=== PATIENT | male | born 1950 | race African-American/Black ===

== ENCOUNTER 2017-06-24 12:12 | Emergency (ER) | payer MEDICAID, SELFPAY ==
[~2017-06-24] VITALS: Ht 180.3 cm; Wt 100.0 kg
[2017-06-24 14:01] LABS: HEMATOCRIT 41.1 % (39.2-51.8); HEMOGLOBIN 13.5 g/dL (13.7-18.0); WHITE BLOOD COUNT 3.3 x10^3/uL (3.4-10)
[2017-06-24 14:04] LABS: ASPARTATE AMINO TRANSFERASE 17 U/L (15-37); BLOOD UREA NITROGEN 12 mg/dL (7-18)
[2017-06-24 15:33] LABS: PATH.CAST-FLAG NOT PRESENT; SPERM-FLAG NOT PRESENT; SRC-FLAG NOT PRESENT; XTAL-FLAG NOT PRESENT; YLC-FLAG NOT PRESENT
[2017-06-24] MEDS ORDERED: KETOROLAC 30 MG/1 ML ONE (16:29)
[2017-06-24] MEDS ORDERED: HYDROcodone/APAP 5/325 TABLET ONE (16:29)
[2017-06-24] MEDS ORDERED: METHOCARBAMOL 750 MG TABLET ONE (16:29)
[2017-06-24] MEDS ORDERED: HYDROcodone/APAP 5/325 TABLET PO ONE (16:30)
[2017-06-24] MEDS ORDERED: METHOCARBAMOL 750 MG TABLET PO ONE (17:00)
[2017-06-24] MEDS ORDERED: KETOROLAC 30 MG/1 ML IM ONE (17:00)
[2017-06-24 17:33] VITALS: BP 148/100
== END 2017-06-24 17:48 | disposition home or self-care (01) ==
LOC: ED 17:43
DX: S39.012A Strain of muscle, fascia and tendon of lower back, initial encounter (principal); R60.9 Edema, unspecified; N18.9 Chronic kidney disease, unspecified; X58.XXXA Exposure to other specified factors, initial encounter; Y93.89 Activity, other specified; Y92.89 Other specified places as the place of occurrence of the external cause; Y99.8 Other external cause status
CPT/HCPCS: 36415; 71020; 72110; 80053; 81001; 83880; 85025; 93005; 96372; 99285; J1885

== ENCOUNTER 2019-04-10 17:44 | Inpatient (IN) | payer MEDICARE, MEDICAID ==
[~2019-04-10] VITALS: Ht 180.3 cm; Wt 92.8 kg
--- NOTE | 2019-04-10 18:21 | NUR ---
PT TO ROOM FROM LOBBY
--- NOTE | 2019-04-10 18:21 | NUR ---
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
[2019-04-10 18:24] LABS: INTERNATIONAL NORMALIZED RATIO 0.97 (0.93-1.1); PROTHROMBIN TIME 10.2 Seconds (9.6-11.5)
[2019-04-10 18:25] LABS: ALANINE AMINOTRANSFERASE 28 U/L (12-78); ALBUMIN 3.5 g/dL (3.4-5.0); ANION GAP 9 mmol/L (5-15); CHLORIDE 110 mmol/L (98-107); CREATININE 1.27 mg/dL (0.7-1.3)
[2019-04-10 18:29] LABS: ALKALINE PHOSPHATASE 77 U/L (45-117); BILIRUBIN,TOTAL 0.8 mg/dL (0.2-1.0); TOTAL PROTEIN 7.5 g/dL (6.4-8.2)
[2019-04-10 18:30] LABS: MEAN CORPUSCULAR HEMOGLOBIN 28.1 pg (27.5-34.5); MEAN CORPUSCULAR HGB CONC 32.7 g/dL (33.2-36.2); MEAN PLATELET VOLUME 7.4 fL (7.4-10.4); PLATELET COUNT 198 x10^3/uL (130-400); RED BLOOD COUNT 5.13 x10^6/uL (4.38-5.82); RED CELL DISTRIBUTION WIDTH 14.2 % (9.4-14.8)
--- NOTE | 2019-04-10 18:46 | NUR ---
PT RETURNED FROM , AT BEDSIDE
[2019-04-10 18:58] LABS: BASOPHILS # (AUTO) 0.03 x10^3/uL (0-0.1); BASOPHILS % (AUTO) 1 % (0-1); EOSINOPHILS # (AUTO) 0.07 x10^3/uL (0-0.4); EOSINOPHILS % (AUTO) 1 % (1-7); LYMPHOCYTES # (AUTO) 1.17 x10^3/uL (1-3.4); LYMPHOCYTES % (AUTO) 22 % (22-44); MD NO; MONOCYTES # (AUTO) 0.57 x10^3/uL (0.2-0.8); MONOCYTES % (AUTO) 11 % (2-9); NEUTROPHILS # (AUTO) 3.54 x10^3/uL (1.8-6.8); NEUTROPHILS % (AUTO) 66 % (42-75)
[2019-04-10] MEDS ORDERED: HEPARIN 5,000 UNITS/ML, 1ML IV ONE (19:00)
[2019-04-10] MEDS ORDERED: HYDR-3240 PO (19:14)
--- NOTE | 2019-04-10 19:16 | NUR ---
REPORT TO SALLY
--- NOTE | 2019-04-10 19:20 | NUR ---
PT TO CT
[2019-04-10] MEDS ORDERED: HYDROcodone/APAP 5/325 TABLET PO PRN (19:30)
[2019-04-10] MEDS ORDERED: POLYETHYLENE GLYCOL 17 GM PACKET PO PRN (19:30)
[2019-04-10] MEDS ORDERED: BISACODYL 10 MG SUPP PR PRN (19:30)
[2019-04-10] MEDS: NICOTINE 7 MG/24 HR PATCH.TD24 TD SCH (19:30)
[2019-04-10] MEDS ORDERED: ONDANSETRON ODT 4 MG PO PRN (19:30)
[2019-04-10] MEDS ORDERED: ACETAMINOPHEN 325 MG TABLET PO PRN (19:30)
[2019-04-10 19:37] LABS: TROPONIN I < 0.015 ng/mL (0.000-0.045)
[2019-04-10] MEDS: HEPARIN 25,000 UNITS/500ML PMX 500 ML IV PRN (20:26)
[2019-04-10] MEDS ORDERED: WARFARIN 5 MG TABLET PO-COUM ONE (20:30)
[2019-04-10 20:32] VITALS: BP 136/88
[2019-04-10] MEDS: SODIUM CHLORIDE FLUSH 10ML SYR IVF SCH (21:10)
[2019-04-11] MEDS ORDERED: OMNIPAQUE 350 MG/ML, 150 ML BOTTLE ONE (00:23)
[2019-04-11 01:57] VITALS: BP 124/84
[2019-04-11 04:05] LABS: PROTHROMBIN TIME 10.5 Seconds (9.6-11.5)
[2019-04-11 04:07] LABS: ANION GAP 8 mmol/L (5-15); CALCIUM 8.7 mg/dL (8.5-10.1); CHLORIDE 111 mmol/L (98-107); MEAN CORPUSCULAR HGB CONC 32.3 g/dL (33.2-36.2); MEAN CORPUSCULAR VOLUME 86.8 fL (81-97); MEAN PLATELET VOLUME 7.2 fL (7.4-10.4); PLATELET COUNT 194 x10^3/uL (130-400); RED BLOOD COUNT 4.75 x10^6/uL (4.38-5.82); RED CELL DISTRIBUTION WIDTH 14.2 % (9.4-14.8)
[2019-04-11 04:12] LABS: ALANINE AMINOTRANSFERASE 23 U/L (12-78); ALKALINE PHOSPHATASE 71 U/L (45-117); TOTAL PROTEIN 6.5 g/dL (6.4-8.2); TROPONIN I < 0.015 ng/mL (0.000-0.045)
[2019-04-11] MEDS: HEPARIN 5,000 UNITS/ML, 1ML IV PRN ×3 (04:22→18:33)
[2019-04-11 04:30] LABS: BASOPHILS # (AUTO) 0.03 x10^3/uL (0-0.1); BASOPHILS % (AUTO) 1 % (0-1); EOSINOPHILS # (AUTO) 0.09 x10^3/uL (0-0.4); EOSINOPHILS % (AUTO) 2 % (1-7); LYMPHOCYTES % (AUTO) 19 % (22-44); MD SCAN; MONOCYTES # (AUTO) 0.56 x10^3/uL (0.2-0.8); MONOCYTES % (AUTO) 12 % (2-9); NEUTROPHILS # (AUTO) 3.14 x10^3/uL (1.8-6.8); NEUTROPHILS % (AUTO) 67 % (42-75)
[2019-04-11 06:59] VITALS: BP 125/88
[2019-04-11] MEDS: SENNA/DOCUSATE TABLET PO SCH (09:00)
[2019-04-11] MEDS: SODIUM CHLORIDE FLUSH 10ML SYR IVF SCH ×2 (09:00→21:45)
[2019-04-11] MEDS: SODIUM CHLORIDE 0.9% 1,000 ML IV SCH ×2 (12:12→21:46)
[2019-04-11 15:06] VITALS: BP 116/79
[2019-04-11] MEDS ORDERED: WARFARIN 5 MG TABLET PO-COUM ONE (18:00)
[2019-04-11 18:49] VITALS: BP 106/73
[2019-04-11] MEDS: HEPARIN 25,000 UNITS/500ML PMX 500 ML IV PRN (19:29)
[2019-04-11] MEDS: NICOTINE 7 MG/24 HR PATCH.TD24 TD SCH (19:30)
[2019-04-12] MEDS: SODIUM CHLORIDE 0.9% 1,000 ML IV SCH ×2 (00:27→13:50)
[2019-04-12 00:45] VITALS: BP 127/66
[2019-04-12] MEDS: HEPARIN 5,000 UNITS/ML, 1ML IV PRN (01:56)
[2019-04-12 05:15] LABS: BASOPHILS # (AUTO) 0.04 x10^3/uL (0-0.1); BASOPHILS % (AUTO) 1 % (0-1); EOSINOPHILS # (AUTO) 0.12 x10^3/uL (0-0.4); EOSINOPHILS % (AUTO) 3 % (1-7); LYMPHOCYTES # (AUTO) 1.43 x10^3/uL (1-3.4); LYMPHOCYTES % (AUTO) 30 % (22-44); MD NO; MEAN CORPUSCULAR HEMOGLOBIN 27.9 pg (27.5-34.5); MEAN CORPUSCULAR HGB CONC 32.1 g/dL (33.2-36.2); MEAN CORPUSCULAR VOLUME 86.9 fL (81-97); MEAN PLATELET VOLUME 7.4 fL (7.4-10.4); MONOCYTES % (AUTO) 10 % (2-9); NEUTROPHILS # (AUTO) 2.74 x10^3/uL (1.8-6.8); NEUTROPHILS % (AUTO) 57 % (42-75); PLATELET COUNT 188 x10^3/uL (130-400); RED BLOOD COUNT 4.81 x10^6/uL (4.38-5.82); RED CELL DISTRIBUTION WIDTH 14.5 % (9.4-14.8)
[2019-04-12 05:38] LABS: ANION GAP 8 mmol/L (5-15); CHLORIDE 111 mmol/L (98-107)
[2019-04-12 05:43] LABS: INTERNATIONAL NORMALIZED RATIO 1.01 (0.93-1.1); PROTHROMBIN TIME 10.6 Seconds (9.6-11.5)
[2019-04-12 05:49] LABS: ALANINE AMINOTRANSFERASE 23 U/L (12-78); ALBUMIN 2.8 g/dL (3.4-5.0); ALKALINE PHOSPHATASE 83 U/L (45-117); BILIRUBIN,TOTAL 0.8 mg/dL (0.2-1.0); CALCIUM 8.4 mg/dL (8.5-10.1); CREATININE 1.23 mg/dL (0.7-1.3); TOTAL PROTEIN 6.4 g/dL (6.4-8.2)
[2019-04-12 07:08] VITALS: BP 126/79
[2019-04-12] MEDS: SODIUM CHLORIDE FLUSH 10ML SYR IVF SCH ×2 (09:00→20:31)
[2019-04-12] MEDS: SENNA/DOCUSATE TABLET PO SCH (09:00)
[2019-04-12] MEDS: HEPARIN 25,000 UNITS/500ML PMX 500 ML IV PRN (11:21)
[2019-04-12 13:10] VITALS: BP 116/79
[2019-04-12] MEDS ORDERED: WARFARIN 5 MG TABLET PO-COUM ONE (18:00)
[2019-04-12] MEDS: NICOTINE 7 MG/24 HR PATCH.TD24 TD SCH (19:25)
[2019-04-12 19:44] VITALS: BP 114/78
[2019-04-12] MEDS ORDERED: LORazepam 1MG TABLET PO ONE (23:00)
[2019-04-13 01:08] VITALS: BP 109/72
[2019-04-13] MEDS: HEPARIN 25,000 UNITS/500ML PMX 500 ML IV PRN (03:45)
[2019-04-13 04:51] LABS: BASOPHILS # (AUTO) 0.04 x10^3/uL (0-0.1); BASOPHILS % (AUTO) 1 % (0-1); EOSINOPHILS % (AUTO) 3 % (1-7); LYMPHOCYTES # (AUTO) 1.26 x10^3/uL (1-3.4); LYMPHOCYTES % (AUTO) 30 % (22-44); MD NO; MEAN CORPUSCULAR HEMOGLOBIN 27.9 pg (27.5-34.5); MEAN CORPUSCULAR HGB CONC 32.1 g/dL (33.2-36.2); MEAN CORPUSCULAR VOLUME 86.7 fL (81-97); MEAN PLATELET VOLUME 7.4 fL (7.4-10.4); MONOCYTES # (AUTO) 0.46 x10^3/uL (0.2-0.8); MONOCYTES % (AUTO) 11 % (2-9); NEUTROPHILS # (AUTO) 2.33 x10^3/uL (1.8-6.8); NEUTROPHILS % (AUTO) 56 % (42-75); PLATELET COUNT 185 x10^3/uL (130-400); RED BLOOD COUNT 4.58 x10^6/uL (4.38-5.82); RED CELL DISTRIBUTION WIDTH 14.3 % (9.4-14.8)
[2019-04-13 05:03] LABS: INTERNATIONAL NORMALIZED RATIO 1.02 (0.93-1.1); PROTHROMBIN TIME 10.7 Seconds (9.6-11.5)
[2019-04-13 05:04] LABS: CHLORIDE 115 mmol/L (98-107)
[2019-04-13 05:09] LABS: ALANINE AMINOTRANSFERASE 21 U/L (12-78); ALBUMIN 2.6 g/dL (3.4-5.0); ALKALINE PHOSPHATASE 67 U/L (45-117); ANION GAP 6 mmol/L (5-15); BILIRUBIN,TOTAL 0.5 mg/dL (0.2-1.0); CALCIUM 7.8 mg/dL (8.5-10.1); TOTAL PROTEIN 6.3 g/dL (6.4-8.2)
[2019-04-13] MEDS ORDERED: APIX5TAB PO (07:25)
[2019-04-13 07:30] VITALS: BP 139/96
[2019-04-13] MEDS ORDERED: POTA10CA PO (07:39)
[2019-04-13] MEDS ORDERED: LISI5TAB7 PO (07:39)
[2019-04-13] MEDS ORDERED: FURO-93 PO (07:39)
[2019-04-13] MEDS ORDERED: METO25TA2 PO (07:39)
[2019-04-13] MEDS ORDERED: METOPROLOL SUCCINATE 25 MG TAB.ER.24H PO SCH (08:30)
[2019-04-13] MEDS: APIXABAN 5 MG TABLET PO SCH ×2 (08:33→09:00)
[2019-04-13] MEDS: SODIUM CHLORIDE FLUSH 10ML SYR IVF SCH (08:34)
[2019-04-13] MEDS ORDERED: FUROSEMIDE 20 MG/2 ML IV SCH (09:00)
[2019-04-13] MEDS: SENNA/DOCUSATE TABLET PO SCH (09:00)
[2019-04-13] MEDS ORDERED: LISINOPRIL 5 MG TABLET PO SCH (09:00)
== END 2019-04-13 11:13 | disposition home health service (06) | DRG 175 ==
LOC: ED 18:54 → EDIP 18:56 → 4WST 20:00 → DCLOUNGE 04-13 10:48
PROVIDERS: ADMIT Family Medicine; ATTEND Family Medicine
DX: I26.99 Other pulmonary embolism without acute cor pulmonale (principal); I50.21 Acute systolic (congestive) heart failure; I82.402 Acute embolism and thrombosis of unspecified deep veins of left lower extremity; D68.59 Other primary thrombophilia; F17.210 Nicotine dependence, cigarettes, uncomplicated; D64.9 Anemia, unspecified; E04.1 Nontoxic single thyroid nodule; I27.20 Pulmonary hypertension, unspecified; N18.9 Chronic kidney disease, unspecified; Z79.899 Other long term (current) drug therapy; Z82.49 Family history of ischemic heart disease and other diseases of the circulatory system; Z83.3 Family history of diabetes mellitus
CPT/HCPCS: 36415; 71046; 71275; 80053; 83735; 83880; 84100; 84484; 85025; 85520; 85610; 85730; 93005; 93306; 99285; G0378; J1644; Q9967; J1940; J7030

== ENCOUNTER 2020-03-03 22:56 | Emergency (ER) | payer MEDICARE, MEDICAID ==
[~2020-03-03] VITALS: Ht 180.3 cm; Wt 90.9 kg
[~2020-03-03 22:56] MED LIST: APIX5TAB PO; FURO-93 PO; HYDR-3240 PO; LISI5TAB7 PO; METO25TA2 PO; POTA10CA PO
[2020-03-03 23:24] LABS: BASOPHILS # (AUTO) 0.02 x10^3/uL (0-0.1); BASOPHILS % (AUTO) 0 % (0-1); EOSINOPHILS # (AUTO) 0.11 x10^3/uL (0-0.4); EOSINOPHILS % (AUTO) 2 % (1-7); LYMPHOCYTES # (AUTO) 0.81 x10^3/uL (1-3.4); LYMPHOCYTES % (AUTO) 16 % (22-44); MD NO; MEAN CORPUSCULAR HEMOGLOBIN 28.7 pg (27.5-34.5); MEAN CORPUSCULAR VOLUME 87.2 fL (81-97); MEAN PLATELET VOLUME 7.4 fL (7.4-10.4); MONOCYTES # (AUTO) 0.44 x10^3/uL (0.2-0.8); MONOCYTES % (AUTO) 9 % (2-9); NEUTROPHILS # (AUTO) 3.67 x10^3/uL (1.8-6.8); NEUTROPHILS % (AUTO) 73 % (42-75); PLATELET COUNT 226 x10^3/uL (130-400); RED BLOOD COUNT 4.06 x10^6/uL (4.38-5.82); RED CELL DISTRIBUTION WIDTH 13.2 % (9.4-14.8)
[2020-03-03 23:37] LABS: ALANINE AMINOTRANSFERASE 36 U/L (12-78); ALBUMIN 3.3 g/dL (3.4-5.0); ANION GAP 4 mmol/L (5-15); CALCIUM 9.1 mg/dL (8.5-10.1); CHLORIDE 110 mmol/L (98-107); CREATININE 2.05 mg/dL (0.7-1.3)
[2020-03-03 23:39] LABS: ALKALINE PHOSPHATASE 83 U/L (45-117); BILIRUBIN,TOTAL 0.4 mg/dL (0.2-1.0); TOTAL PROTEIN 7.3 g/dL (6.4-8.2)
--- NOTE | 2020-03-03 23:55 | NUR ---
[facility] CATH IRRIGATED UNTIL URINE CLEAR. UA COLLECTED AND SENT. [facility] SECURED AND CLEANSED. CALL LIGHT IN REACH.
[2020-03-04] LABS: CULTURE INDICATED? YES; MICROSCOPIC INDICATED
--- NOTE | 2020-03-04 00:45 | NUR ---
[facility]WAIT[facility]. PT AWARE.
[2020-03-04] MEDS ORDERED: MORPHINE SULFATE 4 MG/ML, 1ML ONE (01:28)
[2020-03-04] MEDS ORDERED: MORPHINE SULFATE 4 MG/ML, 1ML IVPush PRN (01:30)
--- NOTE | 2020-03-04 01:30 | NUR ---
PT C/O INTERMITTENT CRAMPING ABD PAIN. REQUESTING PAIN MEDS. ERP AWARE AND ORDERS RECEIVED. PT MEDICATED PER JAN. CONTINUING TO WAIT FOR RECORDS FROM [facility]--PT AWARE. NO FURTHER NEEDS EXPRESSED. CALL LIGHT IN REACH.
--- NOTE | 2020-03-04 01:39 | NUR ---
URINE FROM [facility] BLOOD TINGED AGAIN. ERP AWARE. ERP TO ORDER ANTIBIOTICS.
[2020-03-04] MEDS ORDERED: CIPROFLOXACIN 500 MG TABLET ONE (01:43)
--- NOTE | 2020-03-04 01:52 | NUR ---
PT MEDICATED PER JAN. PO FLUIDS GIVEN. CALL LIGHT IN REACH.
[2020-03-04] MEDS ORDERED: CIPROFLOXACIN 500 MG TABLET PO ONE (02:00)
[2020-03-04 02:52] VITALS: BP 150/86
== END 2020-03-04 02:55 | disposition home or self-care (01) ==
LOC: MERGE 22:56 → ED 23:33
DX: N30.01 Acute cystitis with hematuria (principal); R10.30 Lower abdominal pain, unspecified; I13.0 Hypertensive heart and chronic kidney disease with heart failure and stage 1 through stage 4 chronic kidney disease, or unspecified chronic kidney disease; N18.9 Chronic kidney disease, unspecified; I50.9 Heart failure, unspecified; F17.200 Nicotine dependence, unspecified, uncomplicated; Z86.718 Personal history of other venous thrombosis and embolism; Z79.01 Long term (current) use of anticoagulants
CPT/HCPCS: 36415; 80053; 81001; 83690; 85025; 87086; 96374; 99283; J2270

== ENCOUNTER 2020-03-20 20:21 | Observation (INO) | payer MEDICARE, MEDICAID ==
[~2020-03-20] VITALS: Ht 180.3 cm; Wt 90.5 kg
--- NOTE | 2020-03-20 20:48 | NUR ---
BIB [facility]. C/O left-sided CP and LOC. Hx DVT and PE, on Eliquis. RR = 28. Lungs diminished throughout. 2+ bilat pedal edema. Hx CHF. A&Ox4. EKG done. Placed on NIBP, pulse ox and diagnostic cardiac sonographer. Will continue to monitor.
--- NOTE | 2020-03-20 21:01 | NUR ---
Patient has catherter for urinary retention. Awaiting prostate biopsy.
[2020-03-20 21:13] LABS: ALANINE AMINOTRANSFERASE 27 U/L (12-78); ALBUMIN 3.2 g/dL (3.4-5.0); ANION GAP 9 mmol/L (5-15); CALCIUM 8.6 mg/dL (8.5-10.1); CHLORIDE 108 mmol/L (98-107); CREATININE 1.62 mg/dL (0.7-1.3)
[2020-03-20 21:17] LABS: ALKALINE PHOSPHATASE 96 U/L (45-117); BILIRUBIN,TOTAL 0.4 mg/dL (0.2-1.0); TOTAL PROTEIN 7.2 g/dL (6.4-8.2); TROPONIN I < 0.015 ng/mL (0.000-0.045)
[2020-03-20 21:18] LABS: BASOPHILS # (AUTO) 0.01 x10^3/uL (0-0.1); BASOPHILS % (AUTO) 0 % (0-1); EOSINOPHILS # (AUTO) 0.11 x10^3/uL (0-0.4); EOSINOPHILS % (AUTO) 2 % (1-7); LYMPHOCYTES # (AUTO) 0.72 x10^3/uL (1-3.4); LYMPHOCYTES % (AUTO) 12 % (22-44); MD NO; MEAN CORPUSCULAR HEMOGLOBIN 29.1 pg (27.5-34.5); MEAN CORPUSCULAR VOLUME 88.3 fL (81-97); MEAN PLATELET VOLUME 7.5 fL (7.4-10.4); MONOCYTES # (AUTO) 0.32 x10^3/uL (0.2-0.8); MONOCYTES % (AUTO) 5 % (2-9); NEUTROPHILS # (AUTO) 4.99 x10^3/uL (1.8-6.8); NEUTROPHILS % (AUTO) 81 % (42-75); PLATELET COUNT 223 x10^3/uL (130-400); RED BLOOD COUNT 4.29 x10^6/uL (4.38-5.82); RED CELL DISTRIBUTION WIDTH 13.4 % (9.4-14.8)
--- NOTE | 2020-03-20 23:15 | NUR ---
Gave report to Ozzy DREW
--- NOTE | 2020-03-20 23:15 | NUR ---
Pt resting comfortably.
--- NOTE | 2020-03-20 23:18 | NUR ---
ASSUMED CARE OF PT. VSS. CALL LIGHT PLACED WITHIN REACH.
[2020-03-20 23:19] LABS: MICROSCOPIC NOT IND
[2020-03-20 23:23] LABS: CULTURE INDICATED? NO
[2020-03-20] MEDS ORDERED: GABA300C10 PO (23:45)
--- NOTE | 2020-03-20 23:49 | NUR ---
1L NS BOLUS RUNNING. PT RESTING ON GURNEY IN NAD. CALL LIGHT PLACED AT BEDSIDE.
[2020-03-21] MEDS ORDERED: SODIUM CHLORIDE 0.9% 1,000ML IVBOLUS ONE
[2020-03-21] MEDS ORDERED: ACETAMINOPHEN 325 MG TABLET PO PRN (00:30)
[2020-03-21] MEDS ORDERED: ONDANSETRON 2MG/ML, 2ML IVPush PRN (00:30)
--- NOTE | 2020-03-21 00:36 | NUR ---
REPORT CALLED TO TIM DREW.
[2020-03-21 01:00] VITALS: BP 121/80
[2020-03-21 02:51] LABS: INTERNATIONAL NORMALIZED RATIO 0.93 (0.93-1.1); PROTHROMBIN TIME 9.8 Seconds (9.6-11.5)
[2020-03-21 03:58] VITALS: BP 118/74
[2020-03-21 06:56] LABS: TROPONIN I < 0.015 ng/mL (0.000-0.045)
[2020-03-21 07:36] LABS: HCT (SEDRATE) 34.4 % (39.2-51.8)
[2020-03-21 08:04] LABS: PSA SCREEN 39.3 ng/mL (0.00-4.00)
[2020-03-21 08:15] VITALS: BP 108/67
[2020-03-21 08:54] VITALS: BP 114/71
[2020-03-21] MEDS: LISINOPRIL 5 MG TABLET PO SCH (08:55)
[2020-03-21] MEDS: METOPROLOL SUCCINATE 25 MG TAB.ER.24H PO SCH (08:55)
[2020-03-21] MEDS ORDERED: APIXABAN 5 MG TABLET PO SCH (09:00)
[2020-03-21] MEDS: APIXABAN 5 MG TABLET PO SCH ×2 (09:44→21:47)
[2020-03-21 12:35] VITALS: BP 120/71
[2020-03-21] MEDS ORDERED: MAGNESIUM HYDROXIDE 8%, 30ML UDC PO PRN (13:30)
[2020-03-21] MEDS ORDERED: GABAPENTIN 300 MG CAPSULE ONE (17:53)
[2020-03-21] MEDS: GABAPENTIN 300 MG CAPSULE PO SCH ×2 (17:56→21:47)
[2020-03-21] MEDS: DOCUSATE 100 MG CAPSULE PO SCH (21:00)
[2020-03-21 21:46] VITALS: BP 115/74
[2020-03-22 01:35] VITALS: BP 103/62
[2020-03-22 04:45] LABS: BASOPHILS # (AUTO) 0.04 x10^3/uL (0-0.1); BASOPHILS % (AUTO) 1 % (0-1); CALCIUM 8.3 mg/dL (8.5-10.1); CHLORIDE 110 mmol/L (98-107); EOSINOPHILS % (AUTO) 2 % (1-7); LYMPHOCYTES # (AUTO) 1.39 x10^3/uL (1-3.4); LYMPHOCYTES % (AUTO) 33 % (22-44); MD NO; MEAN CORPUSCULAR HEMOGLOBIN 28.8 pg (27.5-34.5); MEAN CORPUSCULAR HGB CONC 32.7 g/dL (33.2-36.2); MEAN PLATELET VOLUME 7.6 fL (7.4-10.4); MONOCYTES # (AUTO) 0.35 x10^3/uL (0.2-0.8); MONOCYTES % (AUTO) 8 % (2-9); NEUTROPHILS # (AUTO) 2.36 x10^3/uL (1.8-6.8); NEUTROPHILS % (AUTO) 56 % (42-75); PLATELET COUNT 206 x10^3/uL (130-400); RED BLOOD COUNT 3.63 x10^6/uL (4.38-5.82); RED CELL DISTRIBUTION WIDTH 13.6 % (9.4-14.8)
[2020-03-22 04:51] LABS: ALANINE AMINOTRANSFERASE 22 U/L (12-78); ALBUMIN 2.9 g/dL (3.4-5.0); ALKALINE PHOSPHATASE 61 U/L (45-117); ANION GAP 7 mmol/L (5-15); BILIRUBIN,TOTAL 0.9 mg/dL (0.2-1.0); CREATININE 1.29 mg/dL (0.7-1.3); TOTAL PROTEIN 6.3 g/dL (6.4-8.2)
[2020-03-22 07:20] VITALS: BP 114/69
[2020-03-22] MEDS ORDERED: BISACODYL 10 MG SUPP PR PRN (08:30)
[2020-03-22] MEDS ORDERED: TAMS-11 PO (09:37)
[2020-03-22] MEDS ORDERED: CYCL5TAB PO (09:37)
[2020-03-22] MEDS ORDERED: FINA5TAB4 PO (09:37)
[2020-03-22] MEDS ORDERED: MULT-658 PO (09:37)
[2020-03-22] MEDS ORDERED: APIX2.5T PO (09:41)
[2020-03-22] MEDS ORDERED: FINASTERIDE 5 MG TABLET PO SCH (10:00)
[2020-03-22] MEDS ORDERED: TAMSULOSIN 0.4 MG CAP.ER.24H PO SCH (10:00)
[2020-03-22] MEDS: APIXABAN 5 MG TABLET PO SCH (10:29)
[2020-03-22] MEDS: METOPROLOL SUCCINATE 25 MG TAB.ER.24H PO SCH (10:30)
[2020-03-22] MEDS: LISINOPRIL 5 MG TABLET PO SCH (10:30)
[2020-03-22] MEDS: DOCUSATE 100 MG CAPSULE PO SCH (10:30)
[2020-03-22] MEDS: GABAPENTIN 300 MG CAPSULE PO SCH (10:30)
[2020-03-22 14:20] VITALS: BP 104/68
== END 2020-03-22 17:20 | disposition home or self-care (01) ==
LOC: ED 03-21 00:14 → EDIP 03-21 00:25 → OBSVTOIN 03-21 00:25 → INTOOBSV 03-21 00:25 → 5SO 03-21 00:52
PROVIDERS: ADMIT Internal Medicine; ATTEND Internal Medicine
DX: R55 Syncope and collapse (principal); I13.0 Hypertensive heart and chronic kidney disease with heart failure and stage 1 through stage 4 chronic kidney disease, or unspecified chronic kidney disease; I50.22 Chronic systolic (congestive) heart failure; R59.1 Generalized enlarged lymph nodes; N40.1 Benign prostatic hyperplasia with lower urinary tract symptoms; I26.99 Other pulmonary embolism without acute cor pulmonale; K59.00 Constipation, unspecified; N18.9 Chronic kidney disease, unspecified; D64.9 Anemia, unspecified; R33.8 Other retention of urine; Z79.01 Long term (current) use of anticoagulants
CPT/HCPCS: 36415; 70450; 71045; 74176; 80053; 81003; 83735; 84439; 84443; 84480; 84484; 85025; 85610; 85651; 93005; 93306; 93880; 96360; 97110; 97163; 97530; 99285; G0103; G0378; J7030

== ENCOUNTER 2020-08-28 09:07 | Emergency (ER) | payer MEDICARE, MEDICAID ==
[~2020-08-28] VITALS: Ht 180.3 cm; Wt 86.4 kg
[~2020-08-28 09:07] MED LIST changes: +APIX2.5T PO; +CYCL5TAB PO; +FINA5TAB4 PO; +GABA300C10 PO; +MULT-658 PO; +TAMS-11 PO
[2020-08-28 09:36] VITALS: BP 143/88
[2020-08-28 09:48] LABS: MICROSCOPIC AUTO
[2020-08-28] MEDS ORDERED: TOLTERODINE 2MG TABLET PO ONE (09:55)
[2020-08-28] MEDS ORDERED: CEFTRIAXONE 1,000 MG IM ONE (10:00)
[2020-08-28] MEDS ORDERED: CEFTRIAXONE 1,000 MG ONE (10:01)
[2020-08-28] MEDS ORDERED: LIDOCAINE-MPF 1%, 2ML ONE (10:01)
[2020-08-28] MEDS ORDERED: CARBAMAZEPINE 200 MG TABLET ONE (10:01)
== END 2020-08-28 10:41 | disposition home or self-care (01) ==
LOC: ED 09:14
DX: N30.00 Acute cystitis without hematuria (principal); I13.0 Hypertensive heart and chronic kidney disease with heart failure and stage 1 through stage 4 chronic kidney disease, or unspecified chronic kidney disease; I50.9 Heart failure, unspecified; N18.9 Chronic kidney disease, unspecified; Z86.718 Personal history of other venous thrombosis and embolism
CPT/HCPCS: 51702; 81001; 87086; 96372; 99284; J0696

== ENCOUNTER 2020-09-03 07:28 | Emergency (ER) | payer MEDICARE, MEDICAID ==
[~2020-09-03] VITALS: Ht 180.3 cm; Wt 86.0 kg
--- NOTE | 2020-09-03 08:05 | NUR ---
first contact with pt. pt stated"i woke up and my catheter was out. i'm uncomfortable and little bit pressure pain around my stomach." pt denies n/v/d. hx of prostate cancer. pt's aox4. resps even and unlabored. bp/spo2 monitors in place. call light within reach. pa at bedside evaluating at this time.
--- NOTE | 2020-09-03 08:06 | NUR ---
bladder scan is done at bedside and it is about 600ml
--- NOTE | 2020-09-03 08:33 | NUR ---
gomez cath inserted at this time. pt tolerated well.
[2020-09-03 09:10] VITALS: BP 121/76
--- NOTE | 2020-09-03 09:18 | NUR ---
leg bag applied at dc.
--- NOTE | 2020-09-03 09:19 | NUR ---
Patient given discharge instructions and they have confirmed that they understand the instructions. taxi voucher given at co.
== END 2020-09-03 09:19 | disposition home or self-care (01) ==
LOC: ED 09:00
DX: N40.1 Benign prostatic hyperplasia with lower urinary tract symptoms (principal); R33.8 Other retention of urine; F17.210 Nicotine dependence, cigarettes, uncomplicated; I12.9 Hypertensive chronic kidney disease with stage 1 through stage 4 chronic kidney disease, or unspecified chronic kidney disease; N18.9 Chronic kidney disease, unspecified; Z86.718 Personal history of other venous thrombosis and embolism; Z85.46 Personal history of malignant neoplasm of prostate
CPT/HCPCS: 51702; 99284; 99406

== ENCOUNTER 2020-12-18 09:16 | Observation (INO) | payer MEDICAID, MEDICARE, OTHER ==
[~2020-12-18] VITALS: Ht 180.3 cm; Wt 89.4 kg
[~2020-12-18 09:16] MED LIST changes: +AMOX875T PO; +ASCO500T9 PO; +CHOL10003 PO; +CHOL500045 PO; +HYDR-1067 PO; -HYDR-3240 PO; +LEVO500T8 PO; +[UNRECOGNIZED DRUG - CODE] PO
--- NOTE | 2020-12-18 09:25 | NUR ---
pt ambulated to room with FWW/steady gait.
--- NOTE | 2020-12-18 09:30 | NUR ---
pt ambulated to the bathroom.
--- NOTE | 2020-12-18 09:31 | NUR ---
pt in with C/O "clogged catheter" pt also noted to have a PICC to his left upper arm. PICC appears compromised and mostly exposed, dressing soild and fraying. pt reports that he has had the PICC since September 2020. pt stated he was discharged from the hospital with it and it has not been used.
--- NOTE | 2020-12-18 09:42 | NUR ---
PA AT BEDSIDE.
--- NOTE | 2020-12-18 10:10 | NUR ---
attempted to removed catheter without sucess. bladder scan completed and shows 415mL retention. lab at bedside.
[2020-12-18 10:30] LABS: BASOPHILS % (AUTO) 1 % (0-1); EOSINOPHILS % (AUTO) 2 % (1-7); LYMPHOCYTES % (AUTO) 16 % (22-44); MEAN CORPUSCULAR HEMOGLOBIN 27.2 pg (27.5-34.5); MEAN CORPUSCULAR HGB CONC 32.4 g/dL (33.2-36.2); MEAN PLATELET VOLUME 7.4 fL (7.4-10.4); MONOCYTES % (AUTO) 7 % (2-9); NEUTROPHILS % (AUTO) 75 % (42-75); PLATELET COUNT 211 x10^3/uL (130-400); RED BLOOD COUNT 4.68 x10^6/uL (4.38-5.82); RED CELL DISTRIBUTION WIDTH 13.7 % (9.4-14.8)
--- NOTE | 2020-12-18 10:30 | NUR ---
Discussed urinary findings with PA. PA advised to irrigate cath site to assist in removal
[2020-12-18 10:32] LABS: MD NO
[2020-12-18 10:42] LABS: ALANINE AMINOTRANSFERASE 38 U/L (12-78); ALBUMIN 3.4 g/dL (3.4-5.0); ANION GAP 6 mmol/L (5-15); BILIRUBIN, DIRECT 0.2 mg/dL (0.1-0.2); CHLORIDE 111 mmol/L (98-107); CREATININE 1.14 mg/dL (0.7-1.3)
[2020-12-18 10:45] LABS: ALKALINE PHOSPHATASE 126 U/L (45-117); BILIRUBIN,INDIRECT 0.4 mg/dL (0.0-2.0); BILIRUBIN,TOTAL 0.6 mg/dL (0.2-1.0); TOTAL PROTEIN 7.1 g/dL (6.4-8.2)
[2020-12-18] MEDS ORDERED: SODIUM CHLORIDE 0.9% 1,000ML IVBOLUS ONE (11:30)
[2020-12-18] MEDS ORDERED: SODIUM CHLORIDE FLUSH 10ML SYR IVF ONE (11:30)
--- NOTE | 2020-12-18 12:14 | NUR ---
bladder irrigation attempted. unable to remove catheter. Discussed with PA and concerns regarding PICC line exposure and inquired about removal. PA to consult with MD and give further orders.
--- NOTE | 2020-12-18 12:52 | NUR ---
PICC removed with tip intact. pt tolerated procedure without complications
--- NOTE | 2020-12-18 13:38 | NUR ---
TASK RN NOTE: PT RECLINED IN BED, RESPIRATIONS EVEN AND UNLABORED. SIDE RAILS UP, CALL LIGHT IN REACH. AWAITING UROLOGY CONSULT.
[2020-12-18] MEDS ORDERED: LIDOCAINE 2%,20 ML JEL.PF.APP MM ONE (14:07)
[2020-12-18 15:02] LABS: MICROSCOPIC INDICATED
--- NOTE | 2020-12-18 15:03 | NUR ---
RECEIVED REPORT FROM BENNIE DREW, PLAN OF CARE DISCUSSED
[2020-12-18] MEDS ORDERED: CEFTRIAXONE PMX 1GM/50ML 50 ML ONE (15:29)
[2020-12-18] MEDS ORDERED: CEFTRIAXONE PMX 1GM/50ML 50 ML IVPB ONE (15:30)
--- NOTE | 2020-12-18 15:43 | NUR ---
IV INFUSING, ORDERED MEAL, PT WILL BE ADMITTED, VERBALIZED UNDERSTANDING, WARM BLANKET GIVEN, PT VERBALIZED NO OTHER NEEDS
[2020-12-18] MEDS ORDERED: CEFTRIAXONE PMX 1GM/50ML 50 ML IV SCH (16:30)
[2020-12-18] MEDS ORDERED: GUAIFENESIN/DM 200-20MG, 10ML UDC PO PRN (16:30)
[2020-12-18] MEDS ORDERED: morphine SULFATE 10 MG/ML, 1ML IVPush PRN (16:30)
[2020-12-18] MEDS ORDERED: ENALAPRILAT 1.25 MG/ML, 2ML IVPush PRN (16:30)
[2020-12-18] MEDS ORDERED: ACETAMINOPHEN 325 MG TABLET PO PRN (16:30)
[2020-12-18] MEDS ORDERED: METHOCARBAMOL 500 MG TABLET PO PRN (16:30)
[2020-12-18] MEDS ORDERED: ONDANSETRON 2MG/ML, 2ML IVPush PRN (16:30)
[2020-12-18] MEDS ORDERED: DOCUSATE 100 MG CAPSULE PO PRN (16:30)
--- NOTE | 2020-12-18 16:56 | NUR ---
MEAL PROVIDED, PT VERBALIZED NO OTHER NEEDS AT THIS TIME
[2020-12-18] MEDS ORDERED: ENOXAPARIN 40 MG/0.4 ML SQ SCH (17:30)
--- NOTE | 2020-12-18 17:31 | NUR ---
PATIENT ATE 100% DINNER, VERBALIZED NO OTHER NEEDS, BEAR HUGGER BLANKET GIVEN, CALL LIGHT IN PLACE, WATCHING TV
--- NOTE | 2020-12-18 18:28 | NUR ---
PT WATCHING TV, AWAITING BED PLACEMENT. PT VERBALIZED NO NEEDS AT THIS TIME
--- NOTE | 2020-12-18 18:51 | NUR ---
REPORT TO JANE DREW, PLAN OF CARE DISCUSSED
--- NOTE | 2020-12-18 18:52 | NUR ---
REPORT RECIVED FROM RAJENDRA COREA. PT SLEEPING IN [place], RESP EVEN/UNLABORED, PT ON MONITORS, AWAITING BED UPSTAIRS
[2020-12-18 19:42] VITALS: BP 134/79
[2020-12-18] MEDS ORDERED: TEMAZEPAM 15 MG CAPSULE PO PRN (21:00)
[2020-12-18] MEDS: FAMOTIDINE 20 MG TABLET PO SCH (21:52)
[2020-12-18] MEDS: SODIUM CHLORIDE 0.9% 1,000 ML IV SCH (22:00)
[2020-12-19 01:29] VITALS: BP 124/82
[2020-12-19 05:57] LABS: BASOPHILS % (AUTO) 1 % (0-1); EOSINOPHILS % (AUTO) 3 % (1-7); LYMPHOCYTES % (AUTO) 23 % (22-44); MEAN CORPUSCULAR HEMOGLOBIN 27.4 pg (27.5-34.5); MEAN CORPUSCULAR HGB CONC 32.7 g/dL (33.2-36.2); MEAN PLATELET VOLUME 7.5 fL (7.4-10.4); MONOCYTES % (AUTO) 14 % (2-9); NEUTROPHILS % (AUTO) 59 % (42-75); PLATELET COUNT 195 x10^3/uL (130-400); RED BLOOD COUNT 4.31 x10^6/uL (4.38-5.82); RED CELL DISTRIBUTION WIDTH 13.7 % (9.4-14.8)
[2020-12-19 06:05] LABS: MD NO
[2020-12-19 06:08] LABS: ANION GAP 6 mmol/L (5-15); CALCIUM 8.6 mg/dL (8.5-10.1); CHLORIDE 110 mmol/L (98-107)
[2020-12-19 06:36] LABS: % IRON SATURATION 16 % (20-55); IRON LEVEL 38 mcg/dL (65-175); TOTAL IRON BINDING CAPACITY 244 mcg/dL (250-450)
[2020-12-19] MEDS: SODIUM CHLORIDE 0.9% 1,000 ML IV SCH (07:47)
[2020-12-19 07:54] VITALS: BP 123/78
[2020-12-19] MEDS: FAMOTIDINE 20 MG TABLET PO SCH (08:01)
[2020-12-19] MEDS ORDERED: NITR100C6 PO ×2 (09:12)
[2020-12-19] MEDS ORDERED: CIPR250T27 PO (11:06)
[2020-12-19 11:39] VITALS: BP 128/83
== END 2020-12-19 12:45 | disposition home or self-care (01) ==
LOC: ED 14:10 → EDIP 15:50 → INTOOBSV 15:50 → 4NE 19:21
PROVIDERS: ADMIT Internal Medicine; ATTEND Internal Medicine
DX: N39.0 Urinary tract infection, site not specified (principal); C61 Malignant neoplasm of prostate; T83.9XXA Unspecified complication of genitourinary prosthetic device, implant and graft, initial encounter; E87.8 Other disorders of electrolyte and fluid balance, not elsewhere classified; E87.2 Acidosis; I13.0 Hypertensive heart and chronic kidney disease with heart failure and stage 1 through stage 4 chronic kidney disease, or unspecified chronic kidney disease; I50.32 Chronic diastolic (congestive) heart failure; N18.9 Chronic kidney disease, unspecified; N17.9 Acute kidney failure, unspecified; D63.1 Anemia in chronic kidney disease; G62.9 Polyneuropathy, unspecified; Z87.891 Personal history of nicotine dependence; Z86.718 Personal history of other venous thrombosis and embolism; Z79.899 Other long term (current) drug therapy; Z86.711 Personal history of pulmonary embolism; Z86.16 Personal history of COVID-19
CPT/HCPCS: 36415; 80048; 80076; 81001; 82040; 82607; 82728; 83540; 83550; 83605; 85025; 87040; 87077; 87086; 87186; 96361; 96365; 96372; 97162; 99284; G0378; J0696; J1650; J7030